=== PATIENT | male | born 1975 | race Caucasian/White ===

== ENCOUNTER → 2016-11-04 | Outpatient (CLI) | payer OTHER ==
--- NOTE | 2016-11-04 12:26 | ECHOS ---
DATE OF SERVICE: 11/04/2016 AGE: 41Y SEX: M HT: 68 WT: 145 lbs. Protocol Miguel: X Others: Stress Echo Stage: IV Dur. of Exercise: 11 minutes *Heart Rate Blood Pressure *Rest: 59 Rest: 112/59 * *Max. Achieved: 153 Maximum BP: 177/67 85% PMHR: 153 100% PMHR: 180 *METS: 11.6 INDICATIONS: Chest pain. MEDICATIONS: Patient was exercised for a total period of 11 minutes. A peak heart rate of 153 was achieved. Maximum blood pressure of 177/67 mmHg was noted. The patient did not complain of any chest pain during the test. Resting EKG shows normal sinus rhythm with normal MD interval and QRS duration and normal ST-T waves. No ST segment depression suggestive of ischemia is noted. The baseline echocardiographic images reveal normal left ventricular chamber size with normal left ventricular systolic function. In the immediate postexercise period, normal increase in the wall thickness and contractility is noted. FINAL IMPRESSION: This stress echocardiographic study is negative for stress-induced ischemia. EKG portion of the stress test is not suggestive of ischemia. Patient's exercise tolerance is normal.
== END | disposition home or self-care (01) ==
LOC: RADNMMAIN 09:59
PROVIDERS: ATTEND Family Medicine
DX: R07.9 Chest pain, unspecified (principal)
CPT/HCPCS: 93017; 93350

== ENCOUNTER → 2020-02-26 | Outpatient (CLI) | payer OTHER | END | disposition home or self-care (01) | LOC: LABWHC1 12:51 | PROVIDERS: ATTEND Family Medicine | DX: Z03.818 Encounter for observation for suspected exposure to other biological agents ruled out (principal) | CPT/HCPCS: U0003; C9803 ==